=== PATIENT | female | born 1990 | race Caucasian/White ===

== ENCOUNTER 2016-07-04 14:07 | Emergency (ER) | payer BC ==
[2016-07-04 14:13] VITALS: BP 152/90
--- NOTE | 2016-07-04 16:31 | RAD ---
INDICATION: RIGHT lower extremity pain. Oral contraceptive use. COMPARISON: None. TECHNIQUE: Acevedo scale, color Doppler, and spectral analysis of the deep veins of the RIGHT lower extremity. Vessel compression, phasicity, and augmentation assessed. REPORT: The RIGHT common femoral, great saphenous, profunda femoral, femoral, popliteal, peroneal, and posterior tibial veins are patent. Patency of the contralateral common femoral vein documented. IMPRESSION: No evidence for RIGHT lower extremity deep venous thrombosis. RIGHT
--- NOTE | 2016-07-04 17:38 | ED ---
Lower Extremity - HPI Summary HPI Summary: 25F presents with right leg pain for 3 days. is on control no other risk factors dvt. denies any recent travel, surgeries, history of CA or DVT or family history of blood clots. She states her pain is greatest in calf and anterior thigh. She denies any numbness or tingling. She denies any injury to area. She denies any chest pain or SOB. She states that she has been on the control for 4 months and that she is seeing her obgyn this week to switch control. - History of Current Complaint Pain Intensity: 2 <Judit Mejia - Last Filed: 07/05/16 16:57> <Padmini Lazaro - Last Filed: 07/08/16 09:12> - History of Current Complaint Chief Complaint: EDExtremityLower Stated Complaint: POSS BLOOD CLOT Time Seen by Provider: 07/04/16 17:00 - Allergies/Home Medications Allergies/Adverse Reactions: Allergies Allergy/AdvReac Type Severity Reaction Status Date / Time No Known Allergies Allergy Verified 07/07/16 17:38 PMH/Surg Hx/FS Hx/Imm Hx Endocrine/Hematology History: Denies: Hx Anticoagulant Therapy Cardiovascular History: Denies: Hx Hypertension History: Reports: Hx Kidney Stones, Other Problems/Disorders - Ovarian cyst - Surgical History Surgery Procedure, Year, and Place: Tonsillectomy, ankle surgery - Immunization History Date of Tetanus Vaccine: up to date Date of Influenza Vaccine: up to date Infectious Disease History: Denies: Traveled Outside the [place] in Last 30 Days - Family History Known Family History: Positive: Hypertension, Diabetes, Other - hyperlipidemia, no DVT family history - Social History Alcohol Use: Occasionally Substance Use Type: Reports: None Hx Tobacco Use: No Smoking Status (MU): Never Smoked Tobacco <Judit Mejia - Last Filed: 07/05/16 16:57> Review of Systems Negative: Fever Negative: Chest Pain Negative: Shortness Of Breath Positive: Myalgia - right leg pain All Other Systems Reviewed And Are Negative: Yes <Judit Mejia - Last Filed: 07/05/16 16:57> Physical Exam Triage Information Reviewed: Yes Vital Signs On Initial Exam: Initial Vitals Temp Pulse Resp BP Pulse Ox 98.0 F 84 16 152/90 100 07/04/16 14:09 07/04/16 14:09 07/04/16 14:09 07/04/16 14:09 07/04/16 14:09 Vital Signs Reviewed: Yes Appearance: Positive: Well-Appearing Skin: Positive: Warm, Dry Head/Face: Positive: Normal Head/Face Inspection Eyes: Positive: Normal, Conjunctiva Clear Respiratory/Lung Sounds: Positive: Clear to Auscultation, Breath Sounds Present Cardiovascular: Positive: Normal, RRR Musculoskeletal: Positive: Strength/ROM Intact - of right hip, ankle and kne, Other - good pulses, capillary refill < 2 secs, nontender to calf and anterior thigh, no rash. Negative: Blayne Sign Right <Judit Mejia - Last Filed: 07/05/16 16:57> Vital Signs On Initial Exam: Initial Vitals Temp Pulse Resp BP Pulse Ox 98.0 F 84 16 152/90 100 07/04/16 14:09 07/04/16 14:09 07/04/16 14:09 07/04/16 14:09 07/04/16 14:09 <Padmini Lazaro - Last Filed: 07/08/16 09:12> Diagnostics - Vital Signs Vital Signs Temp Pulse Resp BP Pulse Ox 07/04/16 16:34 98 F 84 16 152/90 100 07/04/16 14:09 98.0 F 84 16 152/90 100 - Ultrasound No standard instances Ultrasound Interpretation: No Acute Changes Ultrasound Interpretation Completed By: Radiologist <Judit Mejia - Last Filed: 07/05/16 16:57> - Vital Signs Vital Signs Temp Pulse Resp BP Pulse Ox 07/04/16 16:34 98 F 84 16 152/90 100 07/04/16 14:09 98.0 F 84 16 152/90 100 <Padmini Lazaro - Last Filed: 07/08/16 09:12> Lower Extremity Course/Dx - Course Course Of Treatment: 25F presents with right anterior thigh and calf pain for 3 days. no injury to area. only risk factor for DVT is control. on exam neg homans. u/s normal. patient is following up with obgyn to switch control. patient understnads and agrees with plan - Diagnoses Differential Diagnosis/HQI/PQRI: Positive: DVT, Sprain, Strain <Judit Mejia - Last Filed: 07/05/16 16:57> <Padmini Lazaro - Last Filed: 07/08/16 09:12> - Diagnoses Provider Diagnoses: Right leg pain Discharge <Judit Mejia - Last Filed: 07/05/16 16:57> <Padmini Lazaro - Last Filed: 07/08/16 09:12> - Discharge Plan Condition: Good Disposition: HOME Patient Education Materials: Leg Pain (ED) Referrals: [facility] [place] PHYSICIAN REFERRAL [Outside] Additional Instructions: Your u/s did not show a DVT Follow up with obgyn Return to ED if develop any new or worsening symptoms Attestations User Type: Provider - I was available for consult. This patient was seen by the advanced practice provider. The patient was not presented to, seen by, or examined by me.-Tessa <Padmini Lazaro - Last Filed: 07/08/16 09:12>
== END 2016-07-04 17:50 | disposition home or self-care (01) ==
LOC: ED 14:07
DX: M79.604 Pain in right leg (principal); Z79.899 Other long term (current) drug therapy
CPT/HCPCS: 93005; 99281

== ENCOUNTER 2016-07-07 16:23 | Emergency (ER) | payer BC ==
--- NOTE | 2016-07-07 18:23 | UC ---
Minor Trauma HPI - HPI Summary HPI Summary: works as a teachers aid at [employer]----in a restraint today hit left knee on ground, kicked in left ribs and left neck and shoulder tightness - History of Current Complaint Chief Complaint: UCLowerExtremity Stated Complaint: KNEE,SHOULDER & RIB INJURIES Time Seen by Provider: 07/07/16 18:14 Hx Obtained From: Patient Hx Last Menstrual Period: 06/30/16 ?: No Onset/Duration: Sudden Onset, Lasting Hours, Still Present Onset Of Pain: Immediate Severity Initially: Mild Severity Currently: Mild Mechanism Of Injury: Direct Blow Aggravating Factor(s): Nothing Alleviating Factor(s): OTC Meds Related History: Positive: Occupational Injury. Negative: Anticoagulants - Allergies/Home Medications Allergies/Adverse Reactions: Allergies Allergy/AdvReac Type Severity Reaction Status Date / Time No Known Allergies Allergy Verified 07/08/16 09:55 Home Medications: Home Medications Norethin Acet & Estrad-Fe [Antonio Fe 03/24 1-20 mg-Mcg] 1 tab PO 07/07/16 [History ] PMH/Surg Hx/FS Hx/Imm Hx Previously Healthy: No Endocrine History Of: Denies: Diabetes, Thyroid Disease Cardiovascular History Of: Denies: Cardiac Disorders, Hypertension Respiratory History Of: Denies: COPD, Asthma GI/ History Of: Reports: Kidney Stones Denies: Ulcer Other History Of: Negative For: Anticoagulant Therapy - Surgical History Surgical History: Yes Surgery Procedure, Year, and Place: Tonsillectomy, ankle surgery - Family History Known Family History: Positive: Hypertension, Diabetes, Other - hyperlipidemia, no DVT family history - Social History Occupation: Employed Full-time Lives: With Family Alcohol Use: Occasionally Substance Use Type: None Smoking Status (MU): Never Smoked Tobacco Review of Systems Constitutional: Negative Skin: Negative Eyes: Negative ENT: Negative Respiratory: Negative Cardiovascular: Negative Gastrointestinal: Negative Genitourinary: Negative Motor: Negative Neurovascular: Negative Musculoskeletal: Arthralgia, Myalgia Neurological: Negative Psychological: Negative All Other Systems Reviewed And Are Negative: Yes Physical Exam Triage Information Reviewed: Yes Appearance: Well-Appearing, No Pain Distress, Well-Nourished Vital Signs: Initial Vital Signs Temp 97.8 F 07/07/16 17:29 Pulse 70 07/07/16 17:29 Resp 16 05/05/17 17:29 BP 139/82 07/07/16 17:29 Pulse Ox 100 07/07/16 17:29 Vital Signs Reviewed: Yes Eye Exam: Normal Eyes: Positive: Conjunctiva Clear ENT Exam: Normal ENT: Positive: Normal ENT inspection, Hearing grossly normal, Pharynx normal, TMs normal. Negative: Nasal congestion, Nasal drainage, Tonsillar swelling, Tonsillar exudate, Trismus, Muffled/hoarse voice Dental Exam: Normal Neck exam: Normal Neck: Positive: Supple, Nontender, No Lymphadenopathy Respiratory Exam: Normal Respiratory: Positive: Lungs clear, Normal breath sounds, No respiratory distress, No accessory muscle use, Other: - left mid ax. chest wall tender to touch Cardiovascular Exam: Normal Cardiovascular: Positive: RRR, No Murmur, Pulses Normal, Brisk Capillary Refill Abdominal Exam: Normal Abdomen Description: Positive: Nontender, No Organomegaly, Soft Bowel Sounds: Positive: Present Musculoskeletal Exam: Normal Musculoskeletal: Positive: Strength Intact, ROM Intact, No Edema Neurological Exam: Normal Neurological: Positive: Alert, Muscle Tone Normal Psychological Exam: Normal Skin Exam: Normal Minor Trauma Course/Dx - Course Course Of Treatment: enmanuel wrap and knee immoblizer for knee (pts request for comfort) tylenol naproxen, ice, muscle relaxer prn for muscle spasm in neck follow with pcp prn, rest - Differential Dx/Diagnosis Differential Diagnosis/HQI/PQRI: Contusion(s), Sprain, Strain Provider Diagnoses: Contusion right knee, left chest wall cervical muscle strain Discharge - Discharge Plan Condition: Stable Disposition: HOME Prescriptions: Cyclobenzaprine TAB* [Flexeril 10 MG TAB*] 10 mg PO TID PRN #15 tab PRN Reason: muscle spasm Naproxen Sodium [Naproxen Sodium 500 MG TAB] 500 mg PO BID #20 tab Patient Education Materials: Muscle Strain (ED), Knee Pain (ED), Rib Contusion (ED), Core Strengthening Exercises (ED) Forms: *Work Release Referrals: Casey Leonardo MD [Medical Doctor] - 3 Days
--- NOTE | 2016-07-07 19:20 | RAD ---
HISTORY: Right knee pain, anterior patellar trauma COMPARISONS: None VIEWS: 4, Frontal, lateral, axial, and oblique views of the right knee FINDINGS: BONE DENSITY: Normal. BONES: There is no displaced fracture. JOINTS: There is no arthropathy. ALIGNMENT: There is no dislocation. SOFT TISSUES: Unremarkable. OTHER FINDINGS: None. IMPRESSION: NO ACUTE OSSEOUS INJURY. IF SYMPTOMS PERSIST, RECOMMEND REPEAT IMAGING.
--- NOTE | 2016-07-07 19:21 | RAD ---
HISTORY: Left-sided rib pain, injury COMPARISONS: None VIEWS: 5, Frontal view of the chest with frontal and oblique views of the left hemithorax FINDINGS: There is no displaced rib fracture or pneumothorax. The visualized lungs are clear. IMPRESSION: NO DISPLACED RIB FRACTURE OR PNEUMOTHORAX.
[2016-07-07 20:00] VITALS: BP 125/71
== END 2016-07-07 19:58 | disposition home or self-care (01) ==
LOC: UCEAST 16:23
DX: S80.01XA Contusion of right knee, initial encounter (principal); S20.219A Contusion of unspecified front wall of thorax, initial encounter; S16.1XXA Strain of muscle, fascia and tendon at neck level, initial encounter; X58.XXXA Exposure to other specified factors, initial encounter; Z87.442 Personal history of urinary calculi
CPT/HCPCS: 99213; G0463

== ENCOUNTER 2016-07-08 09:26 | Emergency (ER) | payer BC ==
[2016-07-08 10:09] VITALS: BP 129/73
--- NOTE | 2016-07-08 10:26 | UC ---
Complaint Female HPI - HPI Summary HPI Summary: External burning with urination, dark yellow urine, urinary frequency without blood or bladder cramping since yesterday. Feels like yeast infection she's had in the past, but wants to make sure it's not UTI. Just had annual pelvic with [facility] a couple weeks ago, pretty sure she had Gc/Ch testing at that time. In monogamous relationship x 6 months, no concerns about STIs today. Does not want pelvic exam today. Understands that she would have to come back if sx do not resolve. - History Of Current Complaint Chief Complaint: UCGU Stated Complaint: UTI COMPLAINT Time Seen by Provider: 07/08/16 09:53 Hx Obtained From: Patient Hx Last Menstrual Period: 07/02/16 ?: No Onset/Duration: Gradual Onset, Lasting Hours Timing: Constant Severity Initially: Mild Severity Currently: Mild Character: Burning Aggravating Factor(s): Urination Associated Signs And Symptoms: Positive: Negative. Negative: Fever, Back Pain, Vaginal Discharge, Vomiting(# Of Episodes =), Genital Swelling - Allergies/Home Medications Allergies/Adverse Reactions: Allergies Allergy/AdvReac Type Severity Reaction Status Date / Time No Known Allergies Allergy Verified 07/08/16 09:55 PMH/Surg Hx/FS Hx/Imm Hx Endocrine History Of: Denies: Diabetes, Thyroid Disease Cardiovascular History Of: Denies: Cardiac Disorders, Hypertension Respiratory History Of: Denies: COPD, Asthma GI/ History Of: Reports: Kidney Stones Denies: Ulcer Other History Of: Negative For: Anticoagulant Therapy - Surgical History Surgical History: Yes Surgery Procedure, Year, and Place: Tonsillectomy, ankle surgery - Family History Known Family History: Positive: Hypertension, Diabetes, Other - hyperlipidemia, no DVT family history - Social History Alcohol Use: Occasionally Substance Use Type: None Smoking Status (MU): Never Smoked Tobacco Review of Systems Constitutional: Negative Skin: Negative Eyes: Negative ENT: Negative Respiratory: Negative Cardiovascular: Negative Gastrointestinal: Negative Genitourinary: Dysuria, Frequency, Other - vulvar itching Motor: Negative Neurovascular: Negative Musculoskeletal: Negative Neurological: Negative Psychological: Negative All Other Systems Reviewed And Are Negative: Yes Physical Exam Triage Information Reviewed: Yes Appearance: Well-Appearing, No Pain Distress, Well-Nourished Vital Signs: Initial Vital Signs Temp 98.1 F 05/06/17 09:56 Pulse 82 07/08/16 09:56 Resp 16 07/08/16 09:56 BP 129/73 07/08/16 09:56 Pulse Ox 99 07/08/16 09:56 Vital Signs Reviewed: Yes Eye Exam: Normal Eyes: Positive: Conjunctiva Clear ENT Exam: Normal ENT: Positive: Normal ENT inspection, Hearing grossly normal, Pharynx normal, TMs normal Dental Exam: Normal Neck exam: Normal Neck: Positive: Supple Respiratory Exam: Normal Respiratory: Positive: Chest non-tender, Lungs clear, Normal breath sounds, No respiratory distress, No accessory muscle use Cardiovascular Exam: Normal Cardiovascular: Positive: RRR, No Murmur Musculoskeletal Exam: Normal Neurological Exam: Normal Neurological: Positive: Alert Psychological Exam: Normal Skin Exam: Normal - Additional Comments Pt declines pelvic exam today because she just had one. Discussed s/sx of worsening (fever, abd pain, increasing discharge, failure to improve) and pt states she will return if she does not get better after yeast tx. Complaint Female Dx - Differential Dx/Diagnosis Provider Diagnoses: vulvovaginitis, likely candidiasis Discharge - Discharge Plan Condition: Stable Disposition: HOME Prescriptions: Fluconazole 150 MG (NF) [Diflucan 150 mg (NF)] 150 mg PO ONCE #2 tab Patient Education Materials: Vulvovaginal Candidiasis (ED) Referrals: No Primary Care Phys,NOPCP [Primary Care Provider] - Additional Instructions: Urine culture pending. As we discussed, you have elected treatment based on clinical symptoms. We have not sent in any confirmatory swabs or labs for this. As long as your symptoms completely resolve, you do not need follow up. If you have prolonged, recurrent , or worsening symptoms, please return here or see your paper plate machine tender.
== END 2016-07-08 10:32 | disposition home or self-care (01) ==
LOC: UCEAST 09:26
DX: B37.3 Candidiasis of vulva and vagina (principal)
CPT/HCPCS: 81003; 87086; 99211; G0463

== ENCOUNTER 2017-05-03 10:46 | Emergency (ER) | payer BC, OTHER ==
[2017-05-03 11:03] VITALS: BP 130/94
[2017-05-03] MEDS ORDERED: Ibuprofen TAB* 600 MG PO ONE (11:50)
--- NOTE | 2017-05-03 11:55 | UC ---
Headache HPI - HPI Summary HPI Summary: 26 year old female with history of panic attack (not on meds) here with chest pressure and headache. Reports she gets headache on and off but yesterday she woke up with the pain. Frontal with no exacerbating factor. Today she felt dizzy while at work, prompting her to come here. No focal weakness or any other complaints. Of note, patient also with complaint of chest pressure that started 1 hour HOT MET[employer]. Described as pressure, no exacerbating factor. She was told she was hypertensive to SBP of 150s when she checked it at work. - History Of Current Complaint Chief Complaint: UCChestPain Stated Complaint: HIGH BLOOD PRESSURE Time Seen by Provider: 05/03/17 11:13 Hx Last Menstrual Period: 04/19/17 Onset Of Symptoms: Gradual Initially Headache Was: Mild Currently Pain Is: Mild Pain Intensity: 3 Character: Sharp Location of Headache: Frontal Aggravating Factor(s): Nothing Associated Signs And Symptoms: Positive: Dizziness. Negative: Nausea, Vomiting , Fever, Neck Pain, Neck Stiffness - Allergies/Home Medications Allergies/Adverse Reactions: Allergies Allergy/AdvReac Type Severity Reaction Status Date / Time No Known Allergies Allergy Verified 05/03/17 10:57 Home Medications: Home Medications Ascorbic Acid TAB* [Vitamin C TAB*] 1 tab PO DAILY 05/03/17 [History Confirmed 05/03/17] Calcium Carbonate [Calcium] 1 tab PO DAILY 05/03/17 [History Confirmed 05/03/17] Melatonin 1 tab PO BEDTIME PRN 05/03/17 [History Confirmed 05/03/17] Multivitamin [Multivitamins] 1 tab PO DAILY 05/03/17 [History Confirmed 05/03/17 ] [place]-3 Fatty Acids/Fish Oil [Fish Oil 1,000 mg Capsule] 1 tab PO DAILY [History Confirmed 05/03/17] PMH/Surg Hx/FS Hx/Imm Hx Other Psychological History: anxiety and panic attack. Other History Of: Negative For: Anticoagulant Therapy - Surgical History Surgical History: Yes Surgery Procedure, Year, and Place: Tonsillectomy, ankle surgery - Family History Known Family History: Positive: Hypertension, Diabetes, Other - hyperlipidemia, no DVT family history - Social History Alcohol Use: Occasionally Substance Use Type: Marijuana Substance Use Comment - Amount & Last Used: q2days Smoking Status (MU): Never Smoked Tobacco Review of Systems Constitutional: Negative Skin: Negative Eyes: Negative ENT: Negative Respiratory: Negative Cardiovascular: Chest Pain Gastrointestinal: Negative Genitourinary: Negative Motor: Negative Neurovascular: Negative Musculoskeletal: Negative Neurological: Headache Psychological: Negative All Other Systems Reviewed And Are Negative: Yes Physical Exam Triage Information Reviewed: Yes Appearance: Well-Appearing, No Pain Distress, Well-Nourished Vital Signs: Initial Vital Signs Temp 36.8 C 05/03/17 10:59 Pulse 96 05/03/17 10:59 Resp 16 05/03/17 10:59 BP 130/94 05/03/17 10:59 Pulse Ox 100 05/03/17 10:59 Eye Exam: Normal ENT Exam: Normal Dental Exam: Normal Neck exam: Normal Respiratory Exam: Normal Cardiovascular Exam: Normal Abdominal Exam: Normal Neurological Exam: Normal, Other - no cerbellar sign Psychological Exam: Normal Skin Exam: Normal Diagnostics - Laboratory Diagnostic Studies Completed/Ordered: HCG and UA both negative - EKG Cardiac Rate: NL Cardiac Rhythm: Sinus: Normal Ectopy: None ST Segment: Non-Specific - Isolated TWI in III Headache Course/Dx - Differential Dx/Diagnosis Differential Diagnosis/HQI/PQRI: Sinus Headache, Tension Headache Provider Diagnoses: Headache. Patient's EKG is unremarkable. Does not have PE risk factor (off OCP for 5 months) Discharge - Discharge Plan Condition: Good Disposition: HOME Prescriptions: Ibuprofen TAB* [Motrin TAB* 600 MG] 600 mg PO Q8H PRN #40 tab PRN Reason: Pain Patient Education Materials: Tension Headache (ED) Forms: *Work Release Referrals: No Primary Care Phys,NOPCP [Primary Care Provider] -
== END 2017-05-03 12:05 | disposition home or self-care (01) ==
LOC: UCEAST 10:46
DX: R51 Headache (principal); R07.89 Other chest pain; R42 Dizziness and giddiness; F41.0 Panic disorder [episodic paroxysmal anxiety]; Z32.02 Encounter for pregnancy test, result negative
CPT/HCPCS: 81003; 84702; 93005; 99212; A9270-GY; G0463